=== PATIENT | male | born 1950 | race Caucasian/White ===

== ENCOUNTER 2020-04-26 14:30 | Emergency (ER) | payer OTHER, MEDICARE ==
[~2020-04-26] VITALS: Ht 182.9 cm; Wt 79.5 kg
[2020-04-26 14:50] VITALS: BP 131/80
== END 2020-04-26 17:00 | disposition left against medical advice (07) ==
LOC: ER 14:30
DX: R42 Dizziness and giddiness (principal); Z53.21 Procedure and treatment not carried out due to patient leaving prior to being seen by health care provider

== ENCOUNTER 2021-01-04 09:23 | Outpatient (CLI) | payer MEDICARE, OTHER ==
[2021-01-04] MEDS ORDERED: barium sulfate 450ml oral suspension ONE (10:00)
== END 2021-01-04 23:59 | disposition home or self-care (01) ==
LOC: RAD 09:23
PROVIDERS: ATTEND Family Medicine
DX: R10.13 Epigastric pain (principal)
CPT/HCPCS: 74220

== ENCOUNTER 2021-04-07 14:28 | Emergency (ER) | payer MEDICARE, OTHER ==
[~2021-04-07] VITALS: Ht 182.9 cm; Wt 79.0 kg
--- NOTE | 2021-04-07 14:46 | NUR ---
pt amb with steady gait to restroom for UA sample
[2021-04-07] MEDS ORDERED: dicyclomine 10mg/ml 2ml ampule IM ONE (14:50)
[2021-04-07] MEDS ORDERED: morphine 4 MG/ML inj SYRINge IV ONE (15:00)
[2021-04-07] MEDS ORDERED: mag hydrox/Alum hydrox/simeth 30ml oral suspension PO ONE ×2 (15:00→16:15)
[2021-04-07] MEDS ORDERED: pantoprazole 40 MG vial IV ONE (15:00)
[2021-04-07] MEDS ORDERED: famotidine/PF 10 mg/ml inj IV ONE ×2 (15:00→16:15)
[2021-04-07] MEDS ORDERED: LORazepam 2 mg/ml vial IV ONE (15:00)
[2021-04-07] MEDS ORDERED: LIDOcaine Viscous 15ml cup MM ONE (15:00)
[2021-04-07] MEDS ORDERED: ondansetron/PF 4mg/2ml inj IV ONE (15:00)
[2021-04-07 15:20] LABS: BASOPHILS # (AUTO) 0.1 X10'3 (0-0.2); BASOPHILS % (AUTO) 0.5 % (0-1); EOSINOPHILS % (AUTO) 0 % (0-6); HEMATOCRIT 44.2 % (42.0-52.0); HEMOGLOBIN 15.2 g/dl (14.0-17.9); LYMPHOCYTES # (AUTO) 0.5 X10'3 (1.1-4.8); LYMPHOCYTES % (AUTO) 2.7 % (21-51); MEAN CORPUSCULAR HEMOGLOBIN 31.2 PG (27.0-31.0); MEAN CORPUSCULAR HGB CONC 34.4 g/dL (33.0-36.5); MEAN CORPUSCULAR VOLUME 90.7 FL (78-98); MEAN PLATELET VOLUME 7.3 FL (7.4-10.4); MONOCYTES # (AUTO) 0.8 X10'3 (0-0.9); MONOCYTES % (AUTO) 4.2 % (2-12); NEUTROPHILS # (AUTO) 18.3 X10'3 (1.8-7.7); NEUTROPHILS % (AUTO) 92.6 % (42-75); PLATELET COUNT 393 X10'3 (140-440); RED BLOOD COUNT 4.87 X10'6 (4.70-6.10); RED CELL DISTRIBUTION WIDTH 13.4 % (11.5-14.5); WHITE BLOOD COUNT 19.7 X10'3 (4.5-11.0)
[2021-04-07 15:45] LABS: ALANINE AMINOTRANSFERASE 29 U/L (12-78); ALBUMIN 4.5 G/DL (3.4-5.0); ALBUMIN/GLOBULIN RATIO 1.3 (1.1-1.5); ALKALINE PHOSPHATASE 86 IU/L (46-116); ANION GAP 16 (8-16); ASPARTATE AMINO TRANSFERASE 16 U/L (10-37); BILIRUBIN,TOTAL 1.4 MG/DL (0.1-1.0); BLOOD UREA NITROGEN 9 MG/DL (7-18); BUN/CREATININE RATIO 9.8 (5.4-32.0); CALCIUM 9.6 MG/DL (8.5-10.1); CHLORIDE 106 MMOL/L (99-107); CREATININE 0.92 MG/DL (0.60-1.10); GLUCOSE 141 MG/DL (70-104); LIPASE < 50 U/L (73-393); POTASSIUM 3.5 MMOL/L (3.5-5.1); SODIUM 144 MMOL/L (135-145); TOTAL CARBON DIOXIDE 21.7 MMOL/L (24-32); TOTAL PROTEIN 7.9 G/DL (6.4-8.2); eGFR 81 ML/MIN
[2021-04-07] MEDS ORDERED: sucralfate 1gm/10ml UD suspension PO ONE (16:15)
[2021-04-07 16:19] LABS: CLARITY,URINE CLEAR (Clear); COLOR,URINE YELLOW (Yellow); GLUCOSE, URINE NEGATIVE (Neg); KETONES,URINE >=80 mg/dl (Neg); LEUKOCYTE ESTERASE ,URINE TRACE (Neg); NITRITES, URINE NEGATIVE (Neg); OCCULT BLOOD,URINE NEGATIVE (Neg); PH,URINE 8.5 (4.8-8.0); PROTEIN,URINE TRACE mg/dl (Neg); UROBILINOGEN,URINE 0.2 E.U/dL (0.2-1.0)
[2021-04-07 16:23] LABS: UA COLLECTION TYPE VOIDED
[2021-04-07] MEDS ORDERED: iohexol 300mg/ml 100ml inj. ONE (16:33)
[2021-04-07 16:35] LABS: BACTERIA,URINE FEW /HPF (Neg); HYALINE CASTS 0-3 /LPF (NEGATIVE); RBC,URINE 0-2 /HPF (0-2); SQUAMOUS EPITHELIAL CELL,UR FEW /LPF (FEW)
[2021-04-07 17:18] VITALS: BP 154/89
[2021-04-07] MEDS ORDERED: FAMO-128 PO (17:33)
[2021-04-07] MEDS ORDERED: ONDA4TAB6 PO (17:33)
--- NOTE | 2021-04-07 17:41 | NUR ---
left message at [facility], waiting for transportation back facility
== END 2021-04-07 18:03 | disposition home or self-care (01) ==
LOC: ER 14:28
DX: K29.00 Acute gastritis without bleeding (principal); Z90.49 Acquired absence of other specified parts of digestive tract
CPT/HCPCS: 36415; 71045; 74177; 80053; 81001; 83605; 83690; 84145; 84484; 85025; 87088; 93005; 96372; 96374; 96375; 96376; 99285; C9113; J0500; J2060; J2270; J2405; J3490; Q9967

== ENCOUNTER 2021-04-18 09:15 | Outpatient (CLI) | payer MEDICARE, OTHER ==
[~2021-04-18] VITALS: Ht 182.9 cm; Wt 79.5 kg
[~2021-04-18 09:15] MED LIST: FAMO-128 PO; ONDA4TAB6 PO
[2021-04-18] MEDS ORDERED: NORMAL SALINE IV ONE (11:15)
[2021-04-18] MEDS ORDERED: SINCALIDE IV ONE (11:15)
== END 2021-04-18 23:59 | disposition home or self-care (01) ==
LOC: RAD 09:15
PROVIDERS: ATTEND Family Medicine
DX: R10.13 Epigastric pain (principal); R11.0 Nausea
CPT/HCPCS: 78227; A9537; J2805

== ENCOUNTER 2021-06-22 08:07 | Emergency (ER) | payer MEDICARE, OTHER ==
[~2021-06-22] VITALS: Ht 182.9 cm; Wt 79.0 kg
[2021-06-22] MEDS ORDERED: mag hydrox/Alum hydrox/simeth 30ml oral suspension PO ONE (08:15)
[2021-06-22] MEDS ORDERED: LIDOcaine Viscous 15ml cup MM ONE (08:15)
[2021-06-22] MEDS ORDERED: LORazepam 2 mg/ml vial IV ONE (08:15)
[2021-06-22] MEDS ORDERED: dicyclomine 10mg/ml 2ml ampule IM ONE (08:20)
[2021-06-22] MEDS ORDERED: diazepam inj 5 MG/ML inj. IV ONE (09:15)
[2021-06-22 09:16] LABS: BASOPHILS % (AUTO) 0.2 % (0-1); EOSINOPHILS % (AUTO) 0.2 % (0-6); HEMATOCRIT 44.3 % (42.0-52.0); HEMOGLOBIN 15.2 g/dl (14.0-17.9); LYMPHOCYTES # (AUTO) 0.6 X10'3 (1.1-4.8); MEAN CORPUSCULAR HEMOGLOBIN 30.8 PG (27.0-31.0); MEAN CORPUSCULAR HGB CONC 34.4 g/dL (33.0-36.5); MEAN CORPUSCULAR VOLUME 89.5 FL (78-98); MEAN PLATELET VOLUME 7.4 FL (7.4-10.4); MONOCYTES # (AUTO) 0.9 X10'3 (0-0.9); MONOCYTES % (AUTO) 5.8 % (2-12); NEUTROPHILS # (AUTO) 13.8 X10'3 (1.8-7.7); NEUTROPHILS % (AUTO) 89.8 % (42-75); PLATELET COUNT 357 X10'3 (140-440); RED BLOOD COUNT 4.95 X10'6 (4.70-6.10); RED CELL DISTRIBUTION WIDTH 13.5 % (11.5-14.5); WHITE BLOOD COUNT 15.4 X10'3 (4.5-11.0)
[2021-06-22 09:30] LABS: ALANINE AMINOTRANSFERASE 27 U/L (12-78); ALBUMIN 4.2 G/DL (3.4-5.0); ALBUMIN/GLOBULIN RATIO 1.2 (1.1-1.5); ALKALINE PHOSPHATASE 78 IU/L (46-116); ANION GAP 14 (8-16); ASPARTATE AMINO TRANSFERASE 20 U/L (10-37); BILIRUBIN,TOTAL 0.8 MG/DL (0.1-1.0); BLOOD UREA NITROGEN 12 MG/DL (7-18); BUN/CREATININE RATIO 13.3 (5.4-32.0); CALCIUM 9.2 MG/DL (8.5-10.1); CHLORIDE 107 MMOL/L (99-107); GLUCOSE 159 MG/DL (70-104); LIPASE 70 U/L (73-393); POTASSIUM 3.7 MMOL/L (3.5-5.1); SODIUM 141 MMOL/L (135-145); TOTAL CARBON DIOXIDE 20.2 MMOL/L (24-32); TOTAL PROTEIN 7.7 G/DL (6.4-8.2); eGFR 83 ML/MIN
[2021-06-22] MEDS ORDERED: BUPIVAcaine/PF 2.5mg/ml (0.25%) 10ml vial ONE (09:46)
[2021-06-22] MEDS ORDERED: morphine 4 MG/ML inj SYRINge IV ONE ×2 (10:25→12:55)
[2021-06-22] MEDS ORDERED: HYDR-3965 PO (11:49)
[2021-06-22] MEDS ORDERED: iohexol 300mg/ml 100ml inj. ONE (12:33)
[2021-06-22] MEDS ORDERED: ketorolac tromethamine 15mg/ml inj. IV ONE (12:55)
[2021-06-22] MEDS ORDERED: metroNIDAZOLE 500mg tablet PO ONE (13:30)
[2021-06-22] MEDS ORDERED: amox tr/potassium clavulanate 875/125mg TAB PO ONE (13:30)
[2021-06-22] MEDS ORDERED: piperacillin/tazo 3.375gm/50ml 50 ML IV ONE ×2 (13:30)
[2021-06-22] MEDS ORDERED: normal saline 1000ML IV soln IV ONE (14:05)
[2021-06-22] MEDS ORDERED: mag hydrox/Alum hydrox/simeth 30ml oral suspension PO PRN (14:35)
[2021-06-22] MEDS ORDERED: magnesium 4gm in 100ml NS 100 ML IV PRN (14:35)
[2021-06-22] MEDS ORDERED: diphenhydrAMINE 25mg capsule PO PRN (14:35)
[2021-06-22] MEDS ORDERED: HYDROcodone/acetaminophen 10/325mg tab PO PRN (14:35)
[2021-06-22] MEDS ORDERED: metoclopramide 5 mg/ml inj IV PRN (14:35)
[2021-06-22] MEDS ORDERED: HYDROcodone/acetaminophen 5mg/325mg tablet PO PRN (14:35)
[2021-06-22] MEDS ORDERED: acetaminophen 650mg rectal suppository RC PRN (14:35)
[2021-06-22] MEDS ORDERED: acetaminophen 325mg tablet PO PRN ×2 (14:35)
[2021-06-22] MEDS ORDERED: HYDROmorphone inj. 0.5 MG/0.5 ML DISP.SYRIN IV PRN (14:35)
[2021-06-22] MEDS ORDERED: potassium Cl 40MEQ/1/2NS 520ml 520 ML IV PRN ×2 (14:35)
[2021-06-22] MEDS ORDERED: dextrose 5%-normal saline 1,000 ML IV SCH (14:35)
[2021-06-22] MEDS ORDERED: morphine 2 MG/ML inj. syringe IV PRN ×2 (14:35)
[2021-06-22] MEDS ORDERED: magnesium 2GM in 50ml NS 50 ML IV PRN (14:35)
[2021-06-22] MEDS ORDERED: magnesium Cl slow-release 64mg tablet PO PRN (14:35)
[2021-06-22] MEDS ORDERED: bisacodyl 10mg suppository rectal RC PRN (14:35)
[2021-06-22] MEDS ORDERED: ondansetron/PF 4mg/2ml inj IV PRN (14:35)
[2021-06-22] MEDS ORDERED: magnesium hydroxide 30ml (MOM) UD suspension PO PRN (14:35)
[2021-06-22] MEDS ORDERED: potassium Cl 20 mEq SR tablet PO PRN ×2 (14:35)
[2021-06-22 14:55] VITALS: BP 125/86
[2021-06-22 14:56] LABS: HEMOGLOBIN A1C 5.1 % (4.5-6.2)
[2021-06-22] MEDS ORDERED: FLUT16SP26 IH (15:25)
[2021-06-22] MEDS ORDERED: CYCL-392 PO (15:25)
[2021-06-22] MEDS ORDERED: PANT40TA54 PO (15:25)
[2021-06-22] MEDS ORDERED: CETI10TA18 PO (15:25)
[2021-06-22] MEDS ORDERED: VITA-268 PO (15:25)
[2021-06-22] MEDS ORDERED: DOCU-148 PO (15:25)
[2021-06-22] MEDS ORDERED: MONT10TA32 PO (15:25)
[2021-06-22] MEDS ORDERED: SERT-433 PO (15:25)
[2021-06-22] MEDS ORDERED: LEVO50TA PO (15:25)
[2021-06-22] MEDS ORDERED: PROP15DR EACHEYE (15:25)
[2021-06-22] MEDS ORDERED: DILT180C87 PO (15:25)
[2021-06-22] MEDS ORDERED: piperacillin/tazo 3.375gm/50ml 50 ML IV SCH ×2 (16:00→20:00)
--- NOTE | 2021-06-22 17:02 | NUR ---
Pt reports that he will leave his bed at 1730 if he does not get admitted.
--- NOTE | 2021-06-22 17:32 | NUR ---
Spoke to hospitalist regarding pt's desire to leave AMA. He states he will fill out electronic form and feels he does not need to come to bedside at this time.
[2021-06-22] MEDS ORDERED: K and/or MAG REPLACEMENT MC SCH (20:00)
[2021-06-22] MEDS ORDERED: heparin, porcine 5000 units/ml vial SQ SCH (20:00)
[2021-06-22] MEDS ORDERED: docusate sod 100mg capsule PO SCH (20:00)
== END 2021-06-22 17:54 | disposition home or self-care (01) ==
LOC: ER 08:07 → ED HOLD 14:39 → UNDOADMIN 14:39 → UNDODISIN 17:54
DX: K57.92 Diverticulitis of intestine, part unspecified, without perforation or abscess without bleeding (principal); R10.84 Generalized abdominal pain; G89.29 Other chronic pain; Z90.89 Acquired absence of other organs; Z79.899 Other long term (current) drug therapy
CPT/HCPCS: 36415; 74177; 80053; 83036; 83605; 83690; 85025; 86885; 86900; 86901; 87040; 93005; 96361; 96365; 96376; 99285; J0500; J1885; J2060; J2270; J2543; J3360; J3490; J7030; J7042; Q9967; G0378